=== PATIENT | female | born 1995 | race African-American/Black ===

== ENCOUNTER 2019-09-04 19:06 | Emergency (ER) | payer MEDICAID ==
[~2019-09-04] VITALS: Ht 160 cm; Wt 82.0 kg
[2019-09-04 20:37] VITALS: BP 139/89
== END 2019-09-04 20:38 | disposition home or self-care (01) ==
LOC: ER 19:06
DX: J03.90 Acute tonsillitis, unspecified (principal); Z98.890 Other specified postprocedural states; Z88.0 Allergy status to penicillin
CPT/HCPCS: 99283